=== PATIENT | male | born 1945 | race Caucasian/White ===

== ENCOUNTER 2019-03-22 08:00 | Outpatient (CLI) | payer MEDICARE, OTHER | END 2019-03-22 23:59 | disposition home or self-care (01) | LOC: LAB.R 08:00 | PROVIDERS: ATTEND Physician Assistant | DX: J02.9 Acute pharyngitis, unspecified (principal) | CPT/HCPCS: 87070 ==

== ENCOUNTER 2019-03-26 11:02 | Outpatient (CLI) | payer MEDICARE, OTHER ==
[2019-03-26 11:28] LABS: BASOPHILS % (AUTO) 0.6 %; EOSINOPHILS # (AUTO) 0.1 10^3/uL (0.0-0.7); EOSINOPHILS % (AUTO) 1.9 %; HGB - HEMOGLOBIN 14.5 g/dL (14.0-18.0); LYMPHOCYTES % (AUTO) 21.6 %; MEAN CORPUSCULAR HEMOGLOBIN 30.3 pg (27.0-31.0); MEAN CORPUSCULAR HGB CONC 33.3 g/dL (32.0-36.0); MEAN CORPUSCULAR VOLUME 90.8 fL (80.0-94.0); MEAN PLATELET VOLUME 10.9 fL (7.4-11.4); MONOCYTES # (AUTO) 0.4 10^3/uL (0.0-1.0); MONOCYTES % (AUTO) 9.1 %; NEUTROPHILS # (AUTO) 3.1 10^3/uL (1.5-6.6); NEUTROPHILS % (AUTO) 66.6 %; PLT - PLATELET COUNT 212 10^3/uL (130-450); RED BLOOD COUNT 4.79 10^6/uL (4.70-6.10); WHITE BLOOD COUNT 4.6 x10^3/uL (4.8-10.8)
[2019-03-26 12:01] LABS: ALBUMIN 4.5 g/dL (3.2-5.5); ALBUMIN/GLOBULIN RATIO 1.3 (1.0-2.2); ALKALINE PHOSPHATASE 64 IU/L (42-121); ALT ALANINE AMINOTRANSFERASE 46 IU/L (10-60); AST ASPARTATE AMINOTRANSFERASE 36 IU/L (10-42); BILIRUBIN,TOTAL 1.1 mg/dL (0.2-1.0); BUN - BLOOD UREA NITROGEN 16 mg/dL (6-20); CALCIUM 9.6 mg/dL (8.5-10.3); CARBON DIOXIDE - CO2 28 mmol/L (21-32); CHLORIDE 99 mmol/L (101-111); CHOL/HDL RATIO 3.7 (<5.0); CHOLESTEROL 140 mg/dL; CREATININE 1.4 mg/dL (0.6-1.2); GFR - MDRD 50 (>89); GLUCOSE 127 mg/dL (70-100); HDL CHOLESTEROL 38 mg/dL; LDL CHOLESTEROL,CALCULATED 71 mg/dL; LDL/HDL RATIO 1.9 (<3.6); SODIUM 139 mmol/L (135-145); VLDL CHOLESTEROL 31 mg/dL
[2019-03-26 12:07] LABS: HB2 TOTAL 15.3 g/dL; HEMOGLOBIN A1C 0.86 g/dL; HEMOGLOBIN A1C % 7.3 % (4.6-6.2)
== END 2019-03-26 11:03 | disposition home or self-care (01) ==
LOC: LAB 11:02
PROVIDERS: ATTEND Physician Assistant
DX: E78.5 Hyperlipidemia, unspecified (principal); E11.9 Type 2 diabetes mellitus without complications; I10 Essential (primary) hypertension; Z12.5 Encounter for screening for malignant neoplasm of prostate
CPT/HCPCS: 36415; 80053; 80061; 83036; 85025; G0103; 83721; 84153

== ENCOUNTER 2020-02-04 10:51 | Outpatient (CLI) | payer MEDICARE, OTHER ==
--- NOTE | 2020-02-04 17:38 | XRAY Report ---
Reason: LEFT ANKLE PAIN Procedure Date: 02/04/2020 Accession Number: [id number] / [id number] Procedure: WCP - Ankle 3 View LT CPT Code: Final Report FULL RESULT: EXAM: LEFT ANKLE RADIOGRAPHY EXAM DATE: 02/04/2020 10:51 AM. CLINICAL HISTORY: LEFT ANKLE PAIN. COMPARISON: FOOT 2 VIEW LT 02/04/2020 10:29 AM. TECHNIQUE: 3 views. FINDINGS: Bones: Normal. No fractures or bone lesions. Joints: Normal. No effusion. No subluxations. The ankle mortise is normally aligned. Soft Tissues: Normal. No soft tissue swelling. IMPRESSION: Negative ankle RADIA
--- NOTE | 2020-02-04 17:41 | XRAY Report ---
Reason: LEFT FOOT PAIN Procedure Date: 02/04/2020 Accession Number: [id number] / [id number] Procedure: WCP - Foot 2 View LT CPT Code: Final Report FULL RESULT: EXAM: LEFT FOOT RADIOGRAPHY EXAM DATE: 02/04/2020 10:51 AM. CLINICAL HISTORY: LEFT FOOT PAIN. COMPARISON: None. TECHNIQUE: 2 views. FINDINGS: Bones: There is chronic appearing spurring along the plantar surface of the distal fifth metatarsal diaphysis. Negative for fracture. There is spurring at the posterior calcaneus near the Achilles insertion. Joints: No subluxation or dislocation. Soft Tissues: Normal. No soft tissue swelling. IMPRESSION: 1. Chronic appearing spurring of the plantar aspect of the distal fifth metatarsal and of the posterior calcaneus. 2. No acute fracture or subluxation. RADIA
== END 2020-02-04 10:52 | disposition home or self-care (01) ==
LOC: DI.WCP 10:51
PROVIDERS: ATTEND Family Medicine
DX: M25.775 Osteophyte, left foot (principal); M77.32 Calcaneal spur, left foot

== ENCOUNTER 2020-07-13 07:00 | Outpatient (CLI) | payer MEDICARE, OTHER ==
--- NOTE | 2020-07-13 15:11 | XRAY Report ---
PROCEDURE: Chest 2 View X-Ray INDICATIONS: CHEST PAIN TECHNIQUE: 2 view(s) of the chest. COMPARISON: None. FINDINGS: Surgical changes and devices: None. Lungs and pleura: No pleural effusions or pneumothorax. Lungs are clear. Mediastinum: Mediastinal contours are normal. Heart size is normal. Bones and chest wall: No suspicious bony abnormalities. Soft tissues appear unremarkable. IMPRESSION: No acute cardiopulmonary pathology. Reviewed by: Mak Rubio MD on 07/13/2020 3:10 PM PDT Approved by: Mak Rubio MD on 07/13/2020 3:10 PM PDT Station ID: [id number]
== END 2020-07-13 23:59 | disposition home or self-care (01) ==
LOC: DI.WCP 07:00
PROVIDERS: ATTEND Physician Assistant
DX: R07.89 Other chest pain (principal)
CPT/HCPCS: 71046

== ENCOUNTER 2020-08-24 15:32 | Outpatient (CLI) | payer MEDICARE, OTHER ==
[2020-08-24 16:14] LABS: CALCIUM 8.7 mg/dL (8.5-10.3); CREATININE 1.5 mg/dL (0.6-1.2)
== END 2020-08-24 15:33 | disposition home or self-care (01) ==
LOC: LAB 15:32
PROVIDERS: ATTEND Physician Assistant
DX: R07.89 Other chest pain (principal)
CPT/HCPCS: 36415; 80048

== ENCOUNTER 2020-09-09 08:55 | Outpatient (CLI) | payer MEDICARE, OTHER ==
--- NOTE | 2020-09-09 12:09 | CARDIAC PROCEDURE NOTE ---
DATE OF SERVICE: 09/09/2020 Physician: Lydia Gayle MD, [facility] INDICATION: Atypical chest pain, hypertension, prior abnormal EKG with exercise. CARDIAC RISK FACTORS: Advanced age, male gender, diabetes, hypertension, elevated cholesterol, family history of heart disease. DESCRIPTION OF PROCEDURE: After signing informed consent, the patient underwent a Curt-protocol treadmill stress test with nuclear myocardial perfusion imaging. RESTING HEART RATE: 52. PEAK HEART RATE: 135 (91% predicted maximum heart rate for age). RESTING BLOOD PRESSURE: 178/84. PEAK BLOOD PRESSURE: 250/78. The patient exercised for 6 minutes and 42 seconds on a Curt-protocol treadmill stress test. He achieved a peak heart rate of 135 (91% PMHR) and 8.1 METs. The patient had mild to moderate shortness of breath, and rated his perceived exertion at 16/20 at peak on the Urban scale. Oxygen saturation was 95%-98% on room air throughout the test. He described resting chest pain at 2/10, which he felt was from his "shingles." This chest pain did not change during exertion nor with a deep breath. Blood pressure response was excessive; in the first stage his blood pressure tian to 174/107 and the second stage 210/111. Blood pressure was also very slow to recover after exercise. RESTING EKG: Sinus bradycardia, borderline first-degree block, IVCD. EKG AT PEAK: First-degree heart block develops, [address] depressions develop in leads II, III, aVF, and V2 through V6. These recovered slowly after exertion and were back to baseline at 7 minutes. SUMMARY: 1. Abnormal resting EKG. 2. Significant ST-segment changes develop suggesting ischemia, by EKG criteria. 3. Fair exercise tolerance. 4. Blood pressure is poorly controlled (despite taking all his prescribed BP medications on schedule). 5. Nuclear images were reported separately and showed an infero-lateral fixed defect that resolves with prone imaging, suggesting attenuation artifact. No areas of reversible ischemia. Normal LVEF. IMPRESSION: 1. Probably normal stress test for coronary ischemia. 2. EKG changes that developed were possibly due to hypertensive BP. RECOMMENDATIONS: 1. Better BP control. 2. Aggressive risk factor management, given the strong family CAD history. cc: Marge Marcano PA-C TD: 09/09/2020 12:01 ENOCH
--- NOTE | 2020-09-09 17:00 | Nuclear Medicine Report ---
PROCEDURE: Rest and exercise myocardial perfusion SPECT with gated imaging and ejection fraction INDICATIONS: ATYPICAL CHEST PAIN RADIOPHARMACEUTICAL: 11.26 mCi Tc-99m Myoview IV at rest and 31.46 mCi Tc-99m Myoview IV at peak exe rcise. [id number] was performed. TECHNIQUE: Radiopharmaceutical was injected at peak stress test, and also at rest. SPECT images wer e obtained. SPECT myocardial perfusion images were displayed in short axis, horizontal long axis, an d vertical long axis views. Gated images were reviewed using AutoQUANT software. COMPARISON: None available. CARDIAC STRESS: A standard Curt treadmill exercise tolerance test was performed by the patient under the supervision of an attending staff. The patient exercised for 6 minutes and 42 seconds; functional aerobic impai rment (NANDA) is -3%. Hemodynamic data: There is normal blood pressure and heart rate response to exercise stress. Patien t achieved of maximum predicted heart rate at peak exercise. Symptoms: Patient denied chest pain during exercise. EKG: No diagnostic EKG changes of ischemia; no ectopy. FINDINGS: Raw data: There is good myocardial labeling by radiotracer. No significant motion artifacts. Lung- to-heart ratio is 0.29 (normal is less than 0.38 for tetrafosmin tracer). Left ventricle function: Gated images demonstrate normal left ventricle wall thickening. No segment al wall motion abnormality. No transient ischemic dilation; TID is 0.91 (normal less than 1.3). The left ventricle resting end-diastolic volume is 83 mL. Left ventricle stress ejection fraction is 77 %; normal values are above 45%. Myocardial perfusion: There is a moderate-sized, moderately intense, fixed perfusion defect involvin g the inferolateral wall. The apparent fixed perfusion defect involving the inferolateral wall demons trates near complete normalization of prone position and likely represents soft tissue attenuation ar tifact. There is otherwise normal distribution of activity in the left and right ventricular myocardi um during both the rest and stress phases of the study. IMPRESSION: 1. Probably normal myocardial perfusion study. Apparent fixed perfusion defect involving the inferola teral wall normalizes in the prone position and likely represents soft tissue attenuation artifact. 2. Normal left ventricular function with no segmental wall motion abnormalities and normal stress LVE F of 77%. 3. Average exercise capacity with functional aerobic impairment of -3%. PQRS ATTESTATIONS: Measure 322 - Is this imaging test primarily performed on a low-risk surgery patient for preoperative evaluation within 30 days preceding their low-risk non-cardiac surgery? Low-risk surgery is defined as cardiac or myocardial infarction less than 1%, including (but not limited to) endoscopic pr ocedures, superficial procedures, cataract surgery, and excisional breast surgery: Answer: No Measure 323 - Is this imaging test performed primarily for the monitoring of an asymptomatic patient who had percutaneous coronary intervention on the visit date or within 2 years of the visit date? An swer: No Measure 324 - Is this imaging test performed primarily for the initial detection and risk assessment on an asymptomatic, low coronary heart disease patient? Low CHD risk definition = clinicians should consider the maximum number of available patient factors used to estimate risk based on [place] (A TP III criteria), typically age, gender, diabetes, smoking status, and use of blood pressure medicati on, and integrate age appropriate estimates for missing elements, such as LDL or standard blood press ure. Answer: No Reviewed by: Bouchra Carrington MD, PhD on 09/09/2020 4:59 PM PST Approved by: Bouchra Carrington MD, PhD on 09/09/2020 4:59 PM PST Station ID: [id number]
== END 2020-09-09 08:56 | disposition home or self-care (01) ==
LOC: DI 08:55
PROVIDERS: ATTEND Physician Assistant
DX: R07.89 Other chest pain (principal)
CPT/HCPCS: 78452; 93017; A9500

== ENCOUNTER 2020-09-29 10:25 | Outpatient (CLI) | payer MEDICARE, OTHER ==
--- NOTE | 2020-09-29 18:41 | XRAY Report ---
PROCEDURE: Shoulder 2 View LT INDICATIONS: LEFT SHOULDER PAIN TECHNIQUE: 2 views of the shoulder were acquired. COMPARISON: None. FINDINGS: Bones: No acute fractures or dislocations. Moderate hypertrophic osteophytic changes of the acromioc lavicular joint with undersurface spurring of the distal clavicle. No suspicious bony lesions. Visu alized ribs appear intact. Soft tissues: No suspicious soft tissue calcifications. IMPRESSION: Left shoulder without acute osseous abnormalities. Moderate hypertrophic left acromiocla vicular osteoarthrosis with undersurface spurring of the distal clavicle. Reviewed by: Antelmo Hein MD on 09/29/2020 5:39 PM [facility] Approved by: Antelmo Hein MD on 09/29/2020 5:39 PM [facility] Station ID: [id number]
--- OUTSIDE RECORDS SUMMARY | 2020-09-30 09:47 | EXTERNAL MEDICAL SUMMARY RPT | Continuity of Care Document ---
:1945 Demographics Phone Unavailable Preferred Language Georgian Marital Status Unknown Latter Day Affiliation Unknown Race Unknown Ethnic Group Unknown Author Organization [place] Address [address] [phone] Phone Care Team Providers Name Role Phone PA-C Unavailable Unavailable Holiday Unavailable Unavailable Miscellaneous Unavailable Unavailable Problems date description facility 2019-03-22 08:00 ACUTE PHARYNGITIS, UNSPECIFIED [facility] 2019-03-26 11:02 TYPE 2 DIABETES MELLITUS [facility] WITHOUT COMPLICATIONS 2019-03-26 11:02 HYPERLIPIDEMIA, UNSPECIFIED [facility] 2019-03-26 11:02 ESSENTIAL (PRIMARY) [facility] HYPERTENSION 2019-03-26 11:02 ENCOUNTER FOR SCREENING FOR [facility] MALIGNANT NEOPLASM OF PROSTATE 2020-02-04 10:51 OSTEOPHYTE, LEFT FOOT [facility] [place] 2020-02-04 10:51 CALCANEAL SPUR, LEFT FOOT [facility] 2020-04-17 07:40 TYPE 2 DIABETES MELLITUS [facility] WITHOUT COMPLICATIONS 2020-04-17 07:40 HYPERLIPIDEMIA, UNSPECIFIED [facility] 2020-04-17 07:40 PALPITATIONS [facility] [place] 2020-04-17 07:40 ENCOUNTER FOR SCREENING FOR [facility] MALIGNANT NEOPLASM OF PROSTATE 2020-07-07 00:00:00 [facility] 2020-07-07 00:00:00 Chondrocostal junction syndrome [facility] [place] [facility] 2020-07-07 00:00:00 [facility]related [facility] [place] [facility] 2020-07-07 00:00:00 Tobacco use and exposure [facility] 2020-07-07 00:00:00 [facility] 2020-07-07 00:00:00 Details of drug misuse behavior [facility] [place] [facility] 2020-07-07 00:00:00 Current some day smoker [facility] [place] [facility] 2020-07-07 00:00:00 Costal chondritis [facility] [place] [facility] 2020-07-07 00:00:00 Tobacco smoking status NHIS [facility] [place] [facility] 2020-07-10 10:43 PAIN IN LEFT SHOULDER [facility] 2020-07-10 11:00 PAIN IN LEFT SHOULDER [facility] 2020-07-13 00:00:00 CHEST 2 VIEW [facility] [place] [facility] 2020-07-13 00:00:00 ETT [facility] [place] [facility] 2020-07-13 00:00:00 Other chest pain [facility] [place] [facility] 2020-07-13 00:00:00 Atypical chest pain [facility] [place] [facility] 2020-07-13 00:00:00 Health-related behavior [facility] [place] [facility] 2020-07-13 00:00:00 [facility] [place] [facility] 2020-07-13 00:00:00 Exercise [facility] [place] [facility] 2020-07-13 00:00:00 Details of drug misuse behavior [facility] [place] [facility] 2020-07-13 00:00:00 Current some day smoker [facility] [place] [facility] 2020-07-13 00:00:00 Tobacco smoking status NHIS [facility] [place] [facility] 2020-07-13 07:00 OTHER [facility]ST PAIN [facility] 2020-07-14 10:15 PAIN IN LEFT SHOULDER [facility] 2020-07-16 10:00 PAIN IN LEFT SHOULDER [facility] 2020-07-20 09:45 PAIN IN LEFT SHOULDER [facility] 2020-07-22 09:45 PAIN IN LEFT SHOULDER [facility] 2020-07-24 15:23 Encounter for screening for [facility] other viral diseases 2020-07-27 14:44 Other chest pain [facility] 2020-07-27 15:30 Other chest pain [facility] 2020-07-29 09:30 PAIN IN LEFT SHOULDER [facility] 2020-07-31 10:15 PAIN IN LEFT SHOULDER [facility] 2020-08-03 10:45 PAIN IN LEFT SHOULDER [facility] 2020-08-05 00:00:00 MPS; EXERCISE [facility] 2020-08-05 00:00:00 [facility] 2020-08-05 00:00:00 [facility] 2020-08-05 00:00:00 [facility] 2020-08-05 00:00:00 [facility] 2020-08-05 00:00:00 Details of drug misuse behavior [facility] 2020-08-05 00:00:00 Current [facility] day [facility] 2020-08-05 00:00:00 Tobacco smoking status NHIS [facility] 2020-08-05 10:45 PAIN IN LEFT SHOULDER [facility] 2020-08-10 10:45 PAIN IN LEFT SHOULDER [facility] 2020-08-17 10:45 PAIN IN LEFT SHOULDER [facility] 2020-08-21 10:15 PAIN IN LEFT SHOULDER [facility] 2020-08-24 14:15 PAIN IN LEFT SHOULDER [facility] 2020-08-26 15:15 PAIN IN LEFT SHOULDER [facility] 2020-08-31 11:30 PAIN IN LEFT SHOULDER [facility] 2020-09-02 00:00:00 Alcohol [facility] 2020-09-02 00:00:00 Health-related behavior [facility] [place] [facility] 2020-09-02 00:00:00 Tobacco use and exposure [facility] [place] [facility] 2020-09-02 00:00:[address] 2020-09-02 00:00:00 Details of drug misuse behavior [facility] [place] [facility] 2020-09-02 00:00:00 [facility] [place] [facility] 2020-09-02 00:00:00 Tobacco smoking status AKIS [facility] [place] [facility] 2020-09-04 10:15 [facility] 2020-09-14 10:45 [facility]OULD[facility] 2020-09-16 10:45 PA[facility] IN [facility]OULD[facility] 2020-09-22 10:57 PA[facility] IN [facility]OULD[facility] 2020-09-22 11:00 [facility]OULD[facility] 2020-09-29 00:00:00 Adhesive capsulitis of shoulder [facility] [place] [facility] 2020-09-29 00:00:00 SHOULDER COMPLETE 2 V [facility] 2020-09-29 00:00:00 Adhesive capsulitis of right [facility] Primary [facility] shoulder [place] [facility] 2020-09-29 00:00:00 Health-related behavior [facility] [place] [facility] 2020-09-29 00:00:00 Tobacco use and exposure [facility] [place] [facility] 2020-09-29 00[facility]00:00 [facility] 2020-09-29 00:00:00 Details of drug misuse behavior [facility] [place] [facility] 2020-09-29 00:00:00 Current some day smoker [facility] [place] [facility] 2020-09-29 00:00:00 Tobacco smoking status AKIS [facility] Allergies date description facility NO KNOWN ENVIRONMENTAL ALLERGIES [facility] No Known Medication Allergies [facility] TETRACYCLINES [facility] LABETALOL [facility] Medications date description facility 2020-07-03 00:00:00 [facility] [place] [facility] 2020-07-03 00:00:00 null [facility] [place] [facility] 2020-07-03 00:00:00 [facility]ONE [facility] [place] [facility] 2020-07-03 00:00:00 [facility]EDNISONE [facility] [place] [facility] 2020-08-05 00:00:00 null [facility] [place] [facility] 2020-08-05 00:00:00 null [facility] [place] [facility] 2020-08-05 00:00:00 null [facility] [place] [facility] 2020-08-05 00:00:00 null [facility] [place] [facility] 2020-08-05 00:00:00 AMLODIPINE BESYLATE [facility] Vikt[facility] [place] [facility] 2020-08-05 00:00:00 AMLODIPINE BESYLATE [facility] [place] [facility] 2020-08-05 00:00:00 AMLODIPINE BESYLATE [facility] [place] [facility] 2020-08-05 00:00:00 AMLODIPINE BESYLATE [facility] [place] [facility] Procedures date description facility 2020-07-13 00:00:00 CHEST 2 [facility] [place] [facility] date description facility 2020-07-13 00:00:00 [facility] [place] [facility] date description facility 2020-07-24 00:00:00 [facility] date description facility 2020-08-05 00:00:00 MPS; EXERCISE [facility] [place] [facility] date description facility 2020-08-05 00:00:00 [facility] [place] [facility] Results Social History date description facility 2020-07-07 00:00:00 Current some day smoker [facility] [place] [facility] date description facility 2020-07-13 00:00:00 Current [facility] day smoker [facility] [place] [facility] date description facility 2020-08-05 00:00:00 Current [facility] day smoker [facility] [place] [facility] date description facility 2020-09-02 00:00:00 Current some day smoker [facility] [place] [facility] date description facility 2020-09-29 00:00:00 [facility] [place] [facility] Social History date description facility 2020-07-07 00:00:00 Current [facility] [place] [facility] date description facility 2020-07-13 00:00:00 Current [facility] day [facility] [place] [facility] date description facility 2020-08-05 00:00:00 Current [facility] [place] [facility] date description facility 2020-09-02 00:00:00 Current [facility] day [facility] [place] [facility] date description facility 2020-09-29 00:00:00 Current [facility] day [facility] [place] [facility] date description facility [id number]
== END 2020-09-29 10:26 | disposition home or self-care (01) ==
LOC: DI.WCP 10:25
PROVIDERS: ATTEND Physician Assistant
DX: M19.012 Primary osteoarthritis, left shoulder (principal)

== ENCOUNTER 2020-12-24 08:06 | Outpatient (CLI) | payer MEDICARE, OTHER ==
[2020-12-24 08:26] LABS: BILIRUBIN,URINE NEGATIVE (NEGATIVE); GLUCOSE, URINE (UA) NEGATIVE (NEGATIVE); KETONES,URINE (UA) NEGATIVE (NEGATIVE); LEUKOCYTE ESTERASE, URINE NEGATIVE (NEGATIVE); NITRITE,URINE NEGATIVE (NEGATIVE); OCCULT BLOOD,URINE NEGATIVE (NEGATIVE); PH,URINE 6.5 PH (5.0-7.5); PROTEIN,URINE NEGATIVE (NEGATIVE); UROBILINOGEN,URINE 0.2 (NORMAL) E.U./dL (NORMAL)
[2020-12-24 08:35] LABS: BASOPHILS % (AUTO) 0.5 %; EOSINOPHILS # (AUTO) 0.1 10^3/uL (0.0-0.7); EOSINOPHILS % (AUTO) 2.6 %; HCT - HEMATOCRIT 44.2 % (42.0-52.0); HGB - HEMOGLOBIN 15.1 g/dL (14.0-18.0); LYMPHOCYTES # (AUTO) 0.9 10^3/uL (1.5-3.5); LYMPHOCYTES % (AUTO) 23.7 %; MEAN CORPUSCULAR HEMOGLOBIN 31.3 pg (27.0-31.0); MEAN CORPUSCULAR HGB CONC 34.2 g/dL (32.0-36.0); MEAN CORPUSCULAR VOLUME 91.7 fL (80.0-94.0); MEAN PLATELET VOLUME 11.3 fL (7.4-11.4); MONOCYTES # (AUTO) 0.4 10^3/uL (0.0-1.0); MONOCYTES % (AUTO) 9.2 %; NEUTROPHILS # (AUTO) 2.4 10^3/uL (1.5-6.6); PLT - PLATELET COUNT 194 10^3/uL (130-450); RED BLOOD COUNT 4.82 10^6/uL (4.70-6.10); RED CELL DISTRIBUTION WIDTH 12.2 % (12.0-15.0); WHITE BLOOD COUNT 3.8 x10^3/uL (4.8-10.8)
[2020-12-24 08:35] LABS: BACTERIA,URINE None Seen /HPF (None Seen); CLARITY,URINE CLEAR (CLEAR); RBC,URINE None Seen /HPF (0-5); SQUAMOUS EPITHELIAL CELL,UR NONE SEEN (<= Few); WBC,URINE 0-3 /HPF (0-3)
[2020-12-24 08:45] LABS: ALBUMIN 4.4 g/dL (3.2-5.5); ALBUMIN/GLOBULIN RATIO 1.4 (1.0-2.2); ALKALINE PHOSPHATASE 72 IU/L (42-121); ALT ALANINE AMINOTRANSFERASE 34 IU/L (10-60); AST ASPARTATE AMINOTRANSFERASE 25 IU/L (10-42); BUN - BLOOD UREA NITROGEN 20 mg/dL (6-20); CALCIUM 9.2 mg/dL (8.5-10.3); CARBON DIOXIDE - CO2 26 mmol/L (21-32); CHLORIDE 102 mmol/L (101-111); CHOL/HDL RATIO 3.7 (<5.0); CHOLESTEROL 140 mg/dL; CREATININE 1.4 mg/dL (0.6-1.2); GFR - MDRD 50 (>89); GLUCOSE 139 mg/dL (70-100); HDL CHOLESTEROL 38 mg/dL; LDL CHOLESTEROL,CALCULATED 72 mg/dL; LDL/HDL RATIO 1.9 (<3.6); POTASSIUM 3.5 mmol/L (3.5-5.0); SODIUM 139 mmol/L (135-145); TOTAL PROTEIN 7.5 g/dL (6.7-8.2); TRIGLYCERIDES 151 mg/dL; VLDL CHOLESTEROL 30 mg/dL
[2020-12-24 10:22] LABS: ESTIMATED AVERAGE GLUCOSE 148 mg/dL (70-100); HEMOGLOBIN A1c% 6.8 % (4.27-6.07)
== END 2020-12-24 08:07 | disposition home or self-care (01) ==
LOC: LAB 08:06
PROVIDERS: ATTEND Family Medicine
DX: E11.9 Type 2 diabetes mellitus without complications (principal); R31.9 Hematuria, unspecified
CPT/HCPCS: 36415; 80053; 80061; 81001; 83036; 83721; 85025; 87086

== ENCOUNTER 2021-04-05 13:05 | Observation (INO) | payer MEDICARE, OTHER ==
[2021-04-05] MEDS ORDERED: ATROPINE ABBOJECT 0.5 MG/5 ML SYRINGE IVP STA (13:33)
[2021-04-05] MEDS ORDERED: GLUCAGON 5 MG in DEXTROSE 5% 45 ML IV STA (13:44)
[2021-04-05 13:49] LABS: BASOPHILS % (AUTO) 0.4 %; EOSINOPHILS # (AUTO) 0.1 10^3/uL (0.0-0.7); EOSINOPHILS % (AUTO) 1.4 %; HCT - HEMATOCRIT 37.8 % (42.0-52.0); HGB - HEMOGLOBIN 13.1 g/dL (14.0-18.0); LYMPHOCYTES # (AUTO) 0.9 10^3/uL (1.5-3.5); LYMPHOCYTES % (AUTO) 12.8 %; MEAN CORPUSCULAR HGB CONC 34.7 g/dL (32.0-36.0); MEAN CORPUSCULAR VOLUME 92.2 fL (80.0-94.0); MEAN PLATELET VOLUME 11.9 fL (7.4-11.4); MONOCYTES # (AUTO) 0.8 10^3/uL (0.0-1.0); MONOCYTES % (AUTO) 10.8 %; NEUTROPHILS # (AUTO) 5.4 10^3/uL (1.5-6.6); NEUTROPHILS % (AUTO) 74.3 %; PLT - PLATELET COUNT 179 10^3/uL (130-450); RED CELL DISTRIBUTION WIDTH 12.1 % (12.0-15.0); WHITE BLOOD COUNT 7.3 x10^3/uL (4.8-10.8)
--- NOTE | 2021-04-05 14:01 | ED Physician Documentation ---
History of Present Illness - Stated complaint Stated Complaint: DIZZINESS - Chief complaint Chief Complaint: Cardiac - History obtained from History obtained from: Patient - History of Present Illness Timing: Today Pain level max: 0 Pain level now: 0 - Additonal information Additional information: Patient is a 75-year-old male who presents to the emergency department complaining of lightheadedness and dizziness for the past 3 days since increasing his metoprolol from 25 mg p.o. daily to 50 mg p.o. daily. It is the extended release metoprolol. No chest pain. Feels short of breath and lightheaded. States he has a history of atrial fibrillation. He is on flecainide as well. Worse with walking, better with lying still. Review of Systems Ten Systems: 10 systems reviewed and negative Constitutional: denies: Fever, Chills Ears: denies: Ear pain Nose: denies: Rhinorrhea / runny nose, Congestion Throat: denies: Sore throat Cardiac: denies: Chest pain / pressure, Palpitations, Calf pain GI: denies: Vomiting, Diarrhea Skin: denies: Rash Musculoskeletal: denies: Neck pain, Back pain Neurologic: denies: Headache PD PAST MEDICAL HISTORY - Past Medical History Past Medical History: Yes Cardiovascular: Hypertension, Atrial fibrillation - Present Medications Home Medications: Ambulatory Orders Medication Instructions Recorded Confirmed Apixaban [Eliquis] 5 mg PO BID 04/05/21 04/05/21 Atorvastatin [Lipitor] 40 mg PO HS 04/05/21 04/05/21 Flecainide [Tambocar] 100 mg PO BID 04/05/21 04/05/21 Losartan [Cozaar] 50 mg PO DAILY 04/05/21 04/05/21 Metoprolol Succinate [Toprol Xl] 25 mg PO BID 04/05/21 04/05/21 Pantoprazole Sodium [Protonix] 20 mg PO DAILY 04/05/21 04/05/21 hydroCHLOROthiazide [Hydrodiuril] 25 mg PO DAILY 04/05/21 04/05/21 metFORMIN [Glucophage] 500 mg PO DAILY 04/05/21 04/05/21 - Allergies Allergies/Adverse Reactions: Allergies Allergy/AdvReac Type Severity Reaction Status Date / Time No Known Drug Allergies Allergy Verified 04/05/21 13:14 - Living Situation Living Situation: reports: With family Living Arrangement: reports: At home - Social History Does the pt have substance abuse?: No - Family History Family history: reports: Non contributory PD ED PE NORMAL - Vitals Vital signs reviewed: Yes - General General: Alert and oriented X 3, No acute distress, Well developed/nourished - HEENT HEENT: PERRL, Moist mucous membranes - Neck Neck: Supple, no meningeal sign - Cardiac Cardiac: Strong equal pulses, Other (bradycardic) - Respiratory Respiratory: No respiratory distress, Clear bilaterally - Abdomen Abdomen: Soft, Non tender, Non distended - Derm Derm: Warm and dry - Extremities Extremities: No edema - Neuro Neuro: Alert and oriented X 3 - Psych Psych: Normal mood, Normal affect Results - Vitals Vitals: Vital Signs - 24 hr 04/05/21 04/05/21 04/05/21 13:14 13:47 15:24 Temperature 36.5 C 37.1 C Heart Rate 41 L 43 L 41 L Respiratory 16 13 24 Rate Blood Pressure 145/86 H 135/100 H 120/86 H O2 Saturation 100 100 99 Oxygen O2 Source Room air - EKG (time done) 1320 Rate: Rate (enter#) (37) Rhythm: Sinus bradycardia [place]: Normal Intervals: Wide QRS Ischemia: Normal ST segments - Labs Labs: Laboratory Tests 04/05/21 04/05/21 04/05/21 13:39 13:45 13:45 WBC 7.3 RBC 4.10 L Hgb 13.1 L Hct 37.8 L MCV 92.2 MCH 32.0 H MCHC 34.7 RDW 12.1 Plt Count 179 MPV 11.9 H Neut # (Auto) 5.4 Lymph # (Auto) 0.9 L [place] # (Auto) 0.8 Eos # (Auto) 0.1 Baso # (Auto) 0.0 Absolute Nucleated RBC 0.00 Nucleated RBC % 0.0 Sodium 139 Potassium 3.3 L Chloride 96 L Carbon Dioxide 29 Anion Gap 14.0 H BUN 22 H Creatinine 1.6 H Estimated GFR (MDRD) 43 L Glucose 118 H Calcium 9.0 Phosphorus Magnesium Total Bilirubin 1.5 H AST 18 ALT 25 Alkaline Phosphatase 80 Troponin I High Sens 14.1 Total Protein 7.7 Albumin 4.0 Globulin 3.7 Albumin/Globulin Ratio 1.1 Lipase 28 Nasal Adenovirus (PCR) Nasal B. parapertussis DNA (PCR) Nasal Coronavir 229E PCR Nasal Coronavir HKU1 PCR Nasal Coronavir NL63 PCR Nasal Coronavir OC43 PCR Nasal Enterovir/Rhinovir PCR Nasal Influenza B PCR Nasal Influenza A PCR Nasal Parainfluen 1 PCR Nasal Parainfluen 2 PCR Nasal Parainfluen 3 PCR Nasal Parainfluen 4 PCR Nasal RSV (PCR) Nasal B.pertussis DNA PCR Nasal C.pneumoniae (PCR) Ruperto Human Metapneumo PCR Nasal M.pneumoniae (PCR) Nasal SARS-CoV-2 (PCR) 04/05/21 04/05/21 13:45 14:59 WBC RBC Hgb Hct MCV MCH MCHC RDW Plt Count MPV Neut # (Auto) Lymph # (Auto) [place] # (Auto) Eos # (Auto) Baso # (Auto) Absolute Nucleated RBC Nucleated RBC % Sodium Potassium Chloride Carbon Dioxide Anion Gap BUN Creatinine Estimated GFR (MDRD) Glucose Calcium Phosphorus 3.9 Magnesium 2.1 Total Bilirubin AST ALT Alkaline Phosphatase Troponin I High Sens Total Protein Albumin Globulin Albumin/Globulin Ratio Lipase Nasal Adenovirus (PCR) NOT DETECTED Nasal B. parapertussis DNA (PCR) NOT DETECTED Nasal Coronavir 229E PCR NOT DETECTED Nasal Coronavir HKU1 PCR NOT DETECTED Nasal Coronavir NL63 PCR NOT DETECTED Nasal Coronavir OC43 PCR NOT DETECTED Nasal Enterovir/Rhinovir PCR NOT DETECTED Nasal Influenza B PCR NOT DETECTED Nasal Influenza A PCR NOT DETECTED Nasal Parainfluen 1 PCR NOT DETECTED Nasal Parainfluen 2 PCR NOT DETECTED Nasal Parainfluen 3 PCR NOT DETECTED Nasal Parainfluen 4 PCR NOT DETECTED Nasal RSV (PCR) NOT DETECTED Nasal B.pertussis DNA PCR NOT DETECTED Nasal C.pneumoniae (PCR) NOT DETECTED Ruperto Human Metapneumo PCR NOT DETECTED Nasal M.pneumoniae (PCR) NOT DETECTED Nasal SARS-CoV-2 (PCR) NOT DETECTED - Rads (name of study) cxr Radiology: Prelim report reviewed, EMP read contemporaneously, See rad report (no acute disease) PD MEDICAL DECISION MAKING - ED course Complexity details: reviewed results, re-evaluated patient, considered differential, d/w patient, d/w family ED course: 75-year-old male with symptomatic bradycardia. Likely secondary to increasing his flecainide and metoprolol. Metoprolol was increased to 50 mg p.o. daily of extended release metoprolol. Flecainide was at 100 mg twice a day. Given atropine and glucagon. Discussed the case with [facility], they recommend decrease flecainide to 50 mg twice a day and hold his metoprolol. We will place him in the hospital for observation to ensure heart rate increases as the flecainide and metoprolol washout. Discussed the case with Dr. Gayle, hospitalist who accepts This document was made in part using voice recognition software. While efforts are made to proofread this document, sound alike and grammatical errors may occur. Departure - Departure Disposition: ED Place in Observation Clinical Impression: Symptomatic bradycardia Condition: Stable
--- NOTE | 2021-04-05 14:01 | XRAY Report ---
PROCEDURE: Chest 1 View X-Ray INDICATIONS: Chest pain TECHNIQUE: One view of the chest was acquired. COMPARISON: 07/13/2020 FINDINGS: Surgical changes and devices: None. Lungs and pleura: No pleural effusions or pneumothorax. Lungs are clear. Mediastinum: Mediastinal contours appear normal. Heart size is normal. Bones and chest wall: No suspicious bony lesions. Overlying soft tissues appear unremarkable. IMPRESSION: No acute cardiopulmonary disease process. Reviewed by: Bouchra Carrington MD, PhD on 04/05/2021 2:00 PM PDT Approved by: Bouchra Carrington MD, PhD on 04/05/2021 2:00 PM PDT Station ID: [id number]
[2021-04-05 14:06] LABS: ALBUMIN/GLOBULIN RATIO 1.1 (1.0-2.2); BILIRUBIN,TOTAL 1.5 mg/dL (0.2-1.0); CREATININE 1.6 mg/dL (0.6-1.2); POTASSIUM 3.3 mmol/L (3.5-5.0); TOTAL PROTEIN 7.7 g/dL (6.7-8.2)
[2021-04-05] MEDS ORDERED: PROMETHAZINE INJ 25 MG in SODIUM CHLORIDE 0.9% 50 ML IV STA (14:33)
[2021-04-05 15:22] LABS: MAGNESIUM 2.1 mg/dL (1.7-2.8); PHOSPHORUS 3.9 mg/dL (2.5-4.6)
[2021-04-05 16:05] LABS: B. PARAPERTUSSIS- RESP PCR PAN NOT DETECTED; B. PERTUSSIS- RESP PCR PANEL NOT DETECTED; CORONAVIRUS 229E-RESP PCR NOT DETECTED; CORONAVIRUS HKU1-RESP PCR NOT DETECTED; CORONAVIRUS NL63-RESP PCR NOT DETECTED; CORONAVIRUS OC43-RESP PCR NOT DETECTED; HUMAN METAPNEUMOVIRUS NOT DETECTED; INFLUENZA A- RESP PCR PANEL NOT DETECTED; INFLUENZA B - RESP PCR PANEL NOT DETECTED; PARAINFLUENZA VIRUS 1 NOT DETECTED; PARAINFLUENZA VIRUS 2 NOT DETECTED; PARAINFLUENZA VIRUS 3 NOT DETECTED; PARAINFLUENZA VIRUS 4 NOT DETECTED; RHINOVIRUS/ENTEROVIRUS NOT DETECTED; RSV- RESP PCR PANEL NOT DETECTED; SARS-CoV-2 -RESP PCR PANEL NOT DETECTED
[2021-04-05 16:06] LABS: C. PNEUMONIAE- RESP PCR PANEL NOT DETECTED; M. PNEUMONIAE- RESP PCR PANEL NOT DETECTED
[2021-04-05] MEDS ORDERED: SODIUM CHLORIDE FLUSH 0.9% 10 ML SYRINGE IVP PRN (16:37)
--- NOTE | 2021-04-05 17:09 | PHARMACY PROGRESS NOTE ---
- Best Possible Medication History Admit Date and Time: 04/05/21 1650 Processed by: Pharmacy Medication History completed: Yes Patient Interview: Pt unable to participate Secondary Source(s): Physician records, Pharmacy records, Insurance records As the person ultimately responsible for medication therapy, providers are able to order a medication from an existing home medication list in [facility] via the "Reconcile Routine" prior to Confirmation of that medication by application support lead. Such practice is discouraged except when the physician, in their clinical judgment, deems that a medical need exists for a medication without regard to previous use.
[2021-04-05] MEDS: APIXABAN 5 MG TABLET PO SCH (20:49)
[2021-04-05] MEDS ORDERED: HEPARIN 5,000 UNIT/ML VIAL SUBQ SCH (21:00)
--- NOTE | 2021-04-05 23:05 | HISTORY & PHYSICAL EXAMINATION ---
Chief Complaint - Chief Complaint Chief Complaint: "Feels like my heart is sick" History of Present Illness - Admitted From Admitted From:: ED - History Obtained From Records Reviewed: ED History obtained from: Patient Exam Limitations: None - History of Present Illness HPI Comment/Other: [place] is a 75-year-old male with a past medical history of atrial fibrillation, Anticoagulated on apixaban, history of type 2 diabetes mellitus on Metformin, history of GERD, hyperlipidemia, hypertension, who presents to the emergency department today with a 4-day history of progressive lightheadedness and difficulty ambulating with near syncopal symptoms. He was seen in emergency department at the discretion of his PCP who recommended he come in for EKG. He has a exceptional children teacher that follows him at [facility] and there are plans for cardioversion outpatient in 2 days. Prior to this, he was recently started on flecainide, and his metoprolol was increased from 25 mg p.o. daily to 50 mg p.o. daily. He was started on metoprolol 2 weeks prior to all of this. In the ED, he was found to have bradycardia with heart rates dropping down into the 30s. His exceptional children teacher was contacted who stated he should probably have a washout of the beta-blockers and observed overnightUnlikely can be discharged home tomorrow with reduction of his medications based on heart rate and symptoms. Patient denied chest pain, shortness of breath, nausea, vomiting, headache, bleeding, change in stool color or other symptoms. History - Past Medical History Cardiovascular: reports: Hypertension, Atrial fibrillation Endocrine/Autoimmune: reports: Type 2 diabetes GI: reports: GERD MRSA Hx?: No - Family & Social History Family History: Mother: Diabetes, Type 1 Living arrangement: At home Living Situation: With family - Substance History Use: Uses substance without health or social issues: NONE Meds/Allgy - Home Medications Home Medications: Ambulatory Orders Medication Instructions Recorded Confirmed Apixaban [Eliquis] 5 mg PO BID 04/05/21 04/05/21 Atorvastatin [Lipitor] 40 mg PO HS 04/05/21 04/05/21 Flecainide [Tambocar] 100 mg PO BID 04/05/21 04/05/21 Losartan [Cozaar] 50 mg PO DAILY 04/05/21 04/05/21 Metoprolol Succinate [Toprol Xl] 25 mg PO BID 04/05/21 04/05/21 Pantoprazole Sodium [Protonix] 20 mg PO DAILY 04/05/21 04/05/21 hydroCHLOROthiazide [Hydrodiuril] 25 mg PO DAILY 04/05/21 04/05/21 metFORMIN [Glucophage] 500 mg PO DAILY 04/05/21 04/05/21 - Allergies Allergies/Adverse Reactions: Allergies Allergy/AdvReac Type Severity Reaction Status Date / Time No Known Drug Allergies Allergy Verified 04/05/21 13:14 Review of Systems - Constitutional Constitutional: denies: Fever, Malaise - Eyes Eyes: denies: Pain - Cardiovascular Cariovascular: reports: Irregular heart rate, Lightheadedness. denies: Palpitations, Chest pain, Syncope, Exertional dyspnea, Decr. exercise tolerance - Respiratory Respiratory: denies: Cough, Wheezing, SOB at rest - Gastrointestinal Gastrointestinal: denies: Change in bowel habits - Neurological Neurological: reports: General weakness, Dizziness. denies: Focal weakness, Headache, Numbness Prior Level of Functionality: Fully Independent Exam - Vital Signs Reviewed Vital Signs: Yes Vital Signs: Vital Signs x48h Temp Pulse Pulse Resp BP BP Pulse Ox 04/05/21 21:38 36.9 C 42 L 18 111/53 L 97 04/05/21 18:03 47 L 04/05/21 17:35 36.5 C 18 104/69 04/05/21 17:00 47 L 17 104/54 L 98 04/05/21 15:24 41 L 24 120/86 H 99 - Physical Exam General Appearance: positive: No acute distress Eyes Bilateral: positive: Normal inspection ENT: positive: ENT inspection nml Neck: positive: Nml inspection Respiratory: positive: Chest non-tender, No respiratory distress Cardiovascular: positive: No murmur, No gallop, Bradycardia, Decreased pulse(s). negative: Irregularly irregular, Extrasystoles, Tachycardia, Systolic murmur, Diastolic murmur Peripheral Pulses: positive: 2+ Abdomen: positive: Non-tender, No organomegaly, Nml bowel sounds Skin: positive: Color nml, No rash, Warm Extremities: negative: Pedal edema Neurologic/Psychiatric: positive: Oriented x3, CN's nml (2-12), Motor nml, Sensation nml, Mood/affect nml Conclusion/Plan - Problem List (1) Symptomatic bradycardia Conclusion/Plan: Patient likely experiencing near syncopal event secondary to beta-blockade and will benefit from washout. Given lack of other symptoms, current management strategy is limited to observation, telemetry monitoring, and medication adjustments. Will resume flecainide. I did discuss with patient echocardiogram and he does not recall having had one however he does have a appointment in 2 days with his exceptional children teacher for possible cardioversion. I think for now we can defer on inpatient echocardiogram unless his exceptional children teacher would like us to obtain 1 prior to discharge. (2) Type 2 diabetes mellitus Conclusion/Plan: Hold off on Metformin, cover with insulin sliding scale Qualifiers: Diabetes mellitus [employer] insulin use: without snf use (3) HTN (hypertension) Conclusion/Plan: Blood pressure normal to soft. Hold metoprolol. Resume other medications including losartan and hydrochlorothiazide. (4) HLD (hyperlipidemia) Conclusion/Plan: Resume home statin (5) Atrial fibrillation Conclusion/Plan: The bradycardic. See plan for above. Plan for outpatient cardioversion per exceptional children teacher in 2 days. Resume home anticoagulation (6) GERD (gastroesophageal reflux disease) Conclusion/Plan: Resume home PPI - Lab Results Lab results reviewed: Yes Fish Bones: 04/05/21 13:45 04/05/21 13:39 - Diagnostic Imaging Results Diagnostic Imaging Results: positive: Prelim report reviewed - EKG Results EKG Interpreted Independently: Yes Core Measures - Anticipated LOS I expect patient to be DC'd or transferred within 96 hours.: Yes - DVT/VTE - Prophylaxis VTE/DVT Device ordered at admit?: Yes
[2021-04-06] MEDS: SODIUM CHLORIDE FLUSH 0.9% 10 ML SYRINGE IVP SCH ×2 (00:22→09:19)
[2021-04-06 07:48] LABS: HCT - HEMATOCRIT 35.7 % (42.0-52.0); HGB - HEMOGLOBIN 12.1 g/dL (14.0-18.0); MEAN CORPUSCULAR HEMOGLOBIN 31.4 pg (27.0-31.0); MEAN CORPUSCULAR HGB CONC 33.9 g/dL (32.0-36.0); MEAN CORPUSCULAR VOLUME 92.7 fL (80.0-94.0); RED BLOOD COUNT 3.85 10^6/uL (4.70-6.10); RED CELL DISTRIBUTION WIDTH 12.1 % (12.0-15.0); WHITE BLOOD COUNT 5.5 x10^3/uL (4.8-10.8)
[2021-04-06 07:55] LABS: CALCIUM 8.6 mg/dL (8.5-10.3); CREATININE 1.4 mg/dL (0.6-1.2)
[2021-04-06] MEDS ORDERED: LOSARTAN 50 MG TABLET PO SCH (09:00)
[2021-04-06] MEDS ORDERED: APIXABAN 5 MG TABLET PO SCH (09:00)
[2021-04-06] MEDS ORDERED: PANTOPRAZOLE 40 MG TABLET PO SCH (09:00)
[2021-04-06] MEDS ORDERED: hydroCHLOROthiazide 25 MG TABLET PO SCH (09:00)
[2021-04-06] MEDS ORDERED: PANTOPRAZOLE SODIUM 20 MG PO SCH (09:00)
[2021-04-06] MEDS ORDERED: FLECAINIDE 50 MG TABLET PO SCH (09:00)
[2021-04-06] MEDS: APIXABAN 5 MG TABLET PO SCH (09:09)
--- NOTE | 2021-04-06 11:08 | Discharge Plan ---
Discharge Plan Problem Reviewed?: Yes Disposition: Home, Self Care Condition: Stable Prescriptions: Flecainide [Tambocar] 50 mg PO Q12H #60 tablet Metoprolol Succinate [Toprol Xl] 12.5 mg PO DAILY #15 tablet Diet: Diabetic Activity Restrictions: Activity as Tolerated Shower Restrictions: No Driving Restrictions: Yes (no driving until heart rate consistently above 55) Health Concerns: You have a known cardiac issue with an arrhythmia called atrial fibrillation. Your stockroom coordinator, Dr. Espinosa and physician melter assistant Musa, had you on long- acting metoprolol and recently increased your flecainide to control your heart rate and to convert you into a regular rhythm. Unfortunately this resulted in a very low heart rate. This is superimposed on a chronic condition that you already have where your heart rate tends to slow down and cause you to be dizzy and nauseated (called vasovagal fainting). You had a terrible episode of it a few days ago. We have placed you in observation and taking away your medications and your heart rate has gradually increased to an acceptable level. . Plan of Treatment: Dr. Espinosa would like you to be on long-acting metoprolol 12.5 mg a day. He would also like you to be on flecainide 50 mg twice a day. Continue your Eliquis without any change Care Goals: To remain in sinus rhythm. To control your arrhythmia so that you do not have to go on to need a pacemaker. Assessment: Patient understands care goals, has already discussed them with [facility], and will follow through with them. No Smoking: If you smoke, Please STOP! Call for help. Follow-up with: Vazquez Solorio DO [Primary Care Provider] -
[2021-04-06] MEDS ORDERED: POTASSIUM CHLORIDE 20 MEQ TABLET PO ONE (11:21)
[2021-04-06 11:57] VITALS: BP 101/54
--- NOTE | 2021-04-06 16:11 | DISCHARGE SUMMARY ---
"Discharge Summary Admit Date: 04/05/21 Discharge Date: 04/06/21 Discharging Provider: Nicole Soliman MD Primary Care Provider: Vazquez Solorio MD Code Status: Attempt Resuscitation Condition at Discharge: Stable Discharge Disposition: 01 Home, Self Care - DIAGNOSES Discharge Diagnoses with Status of Each Condition: 1. Sinus bradycardia 2. History of atrial fibrillation, recently converted to sinus 3. Type 2 diabetes mellitus, without complications, not on long-term insulin 3. Hypertension 4. Hyperlipidemia 5. Reflux disease without esophagitis 6. Hypokalemia 7. History of vasovagal syncope - CONSULTS | PROCEDURES Procedures: 1. Chest x-ray without acute cardiopulmonary disease process. 2. Telemetry with sinus bradycardia - HOSPITAL COURSE Hospital Course: Was placed on telemetry, and initially only metoprolol was withheld. He continued to have sinus bradycardia and as such flecainide was held. Over the course of his stay he remained soundly in the 40s. On the day of discharge he was able to go up into the 50s. 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 Putting together his history, I think this patient has a baseline sinus bradyc ardia of 60 or less. He was then started on metoprolol and flecainide by his vinyl dipper for his new onset atrial fibrillation. And he has a history of vasovagal syncope. He then suffered the side effects of having severe bradycardia, superimposed on anxiety and vasovagal syncope. And had a terrible episode in the few days prior to admission. The physician delivery assistant who works with his vinyl dipper called on the day of discharge. They instructed the patient to be resumed on metoprolol long-acting 12.5 mg a day. And to stay on flecainide 50 mg twice a day. No change in Eliquis. The patient had potassium supplemented. I explained to him that I want him take another dose tonight, and 2 more doses tomorrow. After that have his primary care provider or vinyl dipper check a BMP to see if he continues to need potassium. As I was leaving the room, at discharge, his vinyl dipper was calling the patient to speak to him and reiterate those instructions. Exam at discharge was a blood pressure of 118/59 supine. 132/59 sitting. 130/56 standing. Heart rate was 40-42 with all of these changes. He was very alarmed that he was good to be resumed on both of these medications. But I explained that his vinyl dipper knew about this and still wanted him to be on these medications to control the atrial fibrillation and to keep him in sinus. Greater then 20 minutes was spent discussing the anatomy of the electrical conducting system of his heart. How atrial fibrillation changed normal conduction. And how his 2 medications were controlling it. is at the bedside. - ALLERGIES Allergies/Adverse Reactions: Allergies Allergy/AdvReac Type Severity Reaction Status Date / Time No Known Drug Allergies Allergy Verified 04/05/21 13:14 - MEDICATIONS Home Medications: Ambulatory Orders Medication Instructions Recorded Confirmed Apixaban [Eliquis] 5 mg PO BID 04/05/21 04/05/21 Atorvastatin [Lipitor] 40 mg PO HS 04/05/21 04/05/21 Losartan [Cozaar] 50 mg PO DAILY 04/05/21 04/05/21 Pantoprazole Sodium [Protonix] 20 mg PO DAILY 04/05/21 04/05/21 hydroCHLOROthiazide [Hydrodiuril] 25 mg PO DAILY 04/05/21 04/05/21 metFORMIN [Glucophage] 500 mg PO DAILY 04/05/21 04/05/21 Flecainide [Tambocar] 50 mg PO Q12H #60 tablet 04/06/21 Metoprolol Succinate [Toprol Xl] 12.5 mg PO DAILY #15 tablet 04/06/21 Potassium Chloride 20 meq PO BID #30 tab 04/06/21 - LABS Result Diagrams: 04/06/21 07:26 04/06/21 07:26"
[2021-04-06] MEDS ORDERED: ATORVASTATIN 40 MG TABLET PO SCH (21:00)
== END 2021-04-06 13:26 | disposition home or self-care (01) ==
LOC: ED 13:05 → MS2 16:59
PROVIDERS: ADMIT Family Medicine Sports Medicine; ATTEND Specialist
DX: R00.1 Bradycardia, unspecified (principal); I48.91 Unspecified atrial fibrillation; E11.9 Type 2 diabetes mellitus without complications; I10 Essential (primary) hypertension; E78.5 Hyperlipidemia, unspecified; K21.9 Gastro-esophageal reflux disease without esophagitis; E87.6 Hypokalemia; Z79.01 Long term (current) use of anticoagulants; Z79.84 Long term (current) use of oral hypoglycemic drugs; Z20.822 Contact with and (suspected) exposure to COVID-19; Z01.812 Encounter for preprocedural laboratory examination
CPT/HCPCS: 36415; 71045; 80048; 80053; 83690; 83735; 84100; 84484; 85025; 85027; 87631; 93005; 96365; 96368; 96375; 99284; 99285; A9270; G0378; J7040; U0004; 0202U

== ENCOUNTER 2021-04-05 17:18 | Outpatient (CLI) | payer MEDICARE, OTHER | END 2021-04-05 17:19 | disposition home or self-care (01) | LOC: COV 17:18 | PROVIDERS: ATTEND Physician Assistant Medical | DX: Z01.812 Encounter for preprocedural laboratory examination (principal); I48.0 Paroxysmal atrial fibrillation; Z20.822 Contact with and (suspected) exposure to COVID-19 ==

== ENCOUNTER 2021-04-09 07:08 | Outpatient (CLI) | payer MEDICARE, OTHER ==
[2021-04-09 07:46] LABS: ALBUMIN 3.7 g/dL (3.2-5.5); ALBUMIN/GLOBULIN RATIO 1.2 (1.0-2.2); CREATININE 1.5 mg/dL (0.6-1.2); POTASSIUM 3.9 mmol/L (3.5-5.0); TOTAL PROTEIN 6.8 g/dL (6.7-8.2)
== END 2021-04-09 07:09 | disposition home or self-care (01) ==
LOC: LAB 07:08
PROVIDERS: ATTEND Family Medicine
DX: E11.9 Type 2 diabetes mellitus without complications (principal)
CPT/HCPCS: 36415; 80053

== ENCOUNTER 2021-04-28 07:00 | Outpatient (CLI) | payer MEDICARE, OTHER ==
[2021-04-28 07:58] LABS: CREATININE 1.4 mg/dL (0.6-1.2); POTASSIUM 3.5 mmol/L (3.5-5.0)
== END 2021-04-28 23:59 | disposition home or self-care (01) ==
LOC: LAB.R 07:00
PROVIDERS: ATTEND Family Medicine
DX: I48.0 Paroxysmal atrial fibrillation (principal)
CPT/HCPCS: 80048

== ENCOUNTER 2021-10-11 07:44 | Outpatient (CLI) | payer MEDICARE, OTHER ==
[2021-10-11 08:19] LABS: BASOPHILS % (AUTO) 0.5 %; EOSINOPHILS # (AUTO) 0.1 10^3/uL (0.0-0.7); EOSINOPHILS % (AUTO) 2.5 %; HCT - HEMATOCRIT 42.1 % (42.0-52.0); HGB - HEMOGLOBIN 14.5 g/dL (14.0-18.0); LYMPHOCYTES # (AUTO) 0.9 10^3/uL (1.5-3.5); LYMPHOCYTES % (AUTO) 20.5 %; MEAN CORPUSCULAR HEMOGLOBIN 31.5 pg (27.0-31.0); MEAN CORPUSCULAR HGB CONC 34.4 g/dL (32.0-36.0); MEAN CORPUSCULAR VOLUME 91.5 fL (80.0-94.0); MEAN PLATELET VOLUME 11.5 fL (7.4-11.4); MONOCYTES # (AUTO) 0.5 10^3/uL (0.0-1.0); MONOCYTES % (AUTO) 10.5 %; NEUTROPHILS # (AUTO) 2.9 10^3/uL (1.5-6.6); NEUTROPHILS % (AUTO) 65.5 %; PLT - PLATELET COUNT 177 10^3/uL (130-450); RED CELL DISTRIBUTION WIDTH 11.9 % (12.0-15.0); WHITE BLOOD COUNT 4.4 x10^3/uL (4.8-10.8)
[2021-10-11 08:32] LABS: CHOL/HDL RATIO 3.4 (<5.0); CHOLESTEROL 111 mg/dL; HDL CHOLESTEROL 33 mg/dL; LDL CHOLESTEROL,CALCULATED 53 mg/dL; LDL/HDL RATIO 1.6 (<3.6); TRIGLYCERIDES 124 mg/dL; VLDL CHOLESTEROL 25 mg/dL
[2021-10-11 13:32] LABS: ESTIMATED AVERAGE GLUCOSE 148 mg/dL (70-100); HEMOGLOBIN A1c% 6.8 % (4.27-6.07)
== END 2021-10-11 07:45 | disposition home or self-care (01) ==
LOC: LAB 07:44
PROVIDERS: ATTEND Family Medicine
DX: E11.9 Type 2 diabetes mellitus without complications (principal); Z12.5 Encounter for screening for malignant neoplasm of prostate
CPT/HCPCS: 36415; 80061; 83036; 85025; G0103; 83721; 84153

== ENCOUNTER 2022-06-02 08:19 | Outpatient (CLI) | payer MEDICARE, OTHER ==
[2022-06-02 08:45] LABS: BASOPHILS % (AUTO) 0.5 %; EOSINOPHILS # (AUTO) 0.1 10^3/uL (0.0-0.7); EOSINOPHILS % (AUTO) 3.2 %; HCT - HEMATOCRIT 41.8 % (42.0-52.0); HGB - HEMOGLOBIN 14.1 g/dL (14.0-18.0); LYMPHOCYTES # (AUTO) 0.9 10^3/uL (1.5-3.5); LYMPHOCYTES % (AUTO) 22.5 %; MEAN CORPUSCULAR HEMOGLOBIN 30.3 pg (27.0-31.0); MEAN CORPUSCULAR HGB CONC 33.7 g/dL (32.0-36.0); MEAN CORPUSCULAR VOLUME 89.9 fL (80.0-94.0); MEAN PLATELET VOLUME 11.1 fL (7.4-11.4); MONOCYTES # (AUTO) 0.5 10^3/uL (0.0-1.0); MONOCYTES % (AUTO) 11.4 %; NEUTROPHILS # (AUTO) 2.5 10^3/uL (1.5-6.6); NEUTROPHILS % (AUTO) 62.2 %; PLT - PLATELET COUNT 191 10^3/uL (130-450); RED BLOOD COUNT 4.65 10^6/uL (4.70-6.10); RED CELL DISTRIBUTION WIDTH 12.2 % (12.0-15.0)
[2022-06-02 09:14] LABS: ALBUMIN/GLOBULIN RATIO 1.3 (1.0-2.2); ALKALINE PHOSPHATASE 76 IU/L (42-121); ALT ALANINE AMINOTRANSFERASE 38 IU/L (10-60); AST ASPARTATE AMINOTRANSFERASE 28 IU/L (10-42); BILIRUBIN,TOTAL 0.9 mg/dL (0.2-1.0); BUN - BLOOD UREA NITROGEN 19 mg/dL (6-20); CALCIUM 9.3 mg/dL (8.5-10.3); CARBON DIOXIDE - CO2 35 mmol/L (21-32); CHLORIDE 102 mmol/L (101-111); CHOL/HDL RATIO 3.3 (<5.0); CHOLESTEROL 117 mg/dL; CREATININE 1.4 mg/dL (0.6-1.2); GFR - MDRD 50 (>89); GLUCOSE 145 mg/dL (70-100); HDL CHOLESTEROL 35 mg/dL; LDL CHOLESTEROL,CALCULATED 59 mg/dL; LDL/HDL RATIO 1.7 (<3.6); POTASSIUM 4.1 mmol/L (3.5-5.0); SODIUM 144 mmol/L (135-145); TOTAL PROTEIN 7.1 g/dL (6.7-8.2); TRIGLYCERIDES 117 mg/dL; VLDL CHOLESTEROL 23 mg/dL
[2022-06-02 09:18] LABS: BILIRUBIN,URINE NEGATIVE (NEGATIVE); GLUCOSE, URINE (UA) NEGATIVE (NEGATIVE); KETONES,URINE (UA) NEGATIVE (NEGATIVE); LEUKOCYTE ESTERASE, URINE NEGATIVE (NEGATIVE); NITRITE,URINE NEGATIVE (NEGATIVE); OCCULT BLOOD,URINE NEGATIVE (NEGATIVE); PROTEIN,URINE NEGATIVE (NEGATIVE); UROBILINOGEN,URINE 0.2 (NORMAL) E.U./dL (NORMAL)
[2022-06-02 09:21] LABS: CLARITY,URINE CLEAR (CLEAR)
[2022-06-02 09:31] LABS: BACTERIA,URINE Rare /HPF (None Seen); RBC,URINE 0-5 /HPF (0-5); SQUAMOUS EPITHELIAL CELL,UR FEW Squamous (<= Few); WBC,URINE 0-3 /HPF (0-3)
[2022-06-02 09:56] LABS: PSA FREE 0.68 ng/mL (0.16-2.81)
[2022-06-02 09:57] LABS: PSA TOTAL 2.01 ng/mL (0.000-2.000)
[2022-06-02 16:27] LABS: ESTIMATED AVERAGE GLUCOSE 157 mg/dL (70-100); HEMOGLOBIN A1c% 7.1 % (4.27-6.07)
== END 2022-06-02 08:20 | disposition home or self-care (01) ==
LOC: LAB 08:19
PROVIDERS: ATTEND Physician Assistant
DX: R36.1 Hematospermia (principal); R35.0 Frequency of micturition; E11.9 Type 2 diabetes mellitus without complications; E78.5 Hyperlipidemia, unspecified
CPT/HCPCS: 36415; 80053; 80061; 81001; 83036; 83721; 84153; 84154; 85025; 87086

== ENCOUNTER 2022-08-22 07:31 | Outpatient (CLI) | payer MEDICARE, OTHER ==
[2022-08-22 08:24] LABS: CALCIUM 9.3 mg/dL (8.5-10.3); CREATININE 1.4 mg/dL (0.6-1.2); POTASSIUM 3.8 mmol/L (3.5-5.0)
== END 2022-08-22 07:32 | disposition home or self-care (01) ==
LOC: LAB 07:31
PROVIDERS: ATTEND Physician Assistant Medical
DX: I48.0 Paroxysmal atrial fibrillation (principal)
CPT/HCPCS: 36415; 80048

== ENCOUNTER 2022-12-13 13:41 | Outpatient (CLI) | payer MEDICARE, OTHER ==
[2022-12-15 10:42] LABS: FREE T3 2.58 pg/mL (2.5-3.9); FREE T4 (FREE THYROXINE) 1.28 ng/dL (0.58-1.64); THYROID STIMULATING HORMONE 0.15 uIU/mL (0.34-5.60)
== END 2022-12-13 13:42 | disposition home or self-care (01) ==
LOC: LAB 13:41
PROVIDERS: ATTEND Internal Medicine Cardiovascular Disease
DX: E04.9 Nontoxic goiter, unspecified (principal); E04.1 Nontoxic single thyroid nodule; R49.0 Dysphonia
CPT/HCPCS: 36415; 84439; 84443; 84481

== ENCOUNTER 2022-12-13 13:43 | Outpatient (CLI) | payer MEDICARE, OTHER ==
[2022-12-13 13:55] LABS: BASOPHILS % (AUTO) 0.6 %; EOSINOPHILS # (AUTO) 0.1 10^3/uL (0.0-0.7); EOSINOPHILS % (AUTO) 2.2 %; HGB - HEMOGLOBIN 12.9 g/dL (14.0-18.0); LYMPHOCYTES % (AUTO) 20.2 %; MEAN CORPUSCULAR HEMOGLOBIN 29.6 pg (27.0-31.0); MEAN CORPUSCULAR HGB CONC 32.3 g/dL (32.0-36.0); MEAN CORPUSCULAR VOLUME 91.7 fL (80.0-94.0); MEAN PLATELET VOLUME 10.5 fL (7.4-11.4); MONOCYTES # (AUTO) 0.6 10^3/uL (0.0-1.0); MONOCYTES % (AUTO) 10.9 %; NEUTROPHILS # (AUTO) 3.3 10^3/uL (1.5-6.6); NEUTROPHILS % (AUTO) 65.9 %; PLT - PLATELET COUNT 237 10^3/uL (130-450); RED BLOOD COUNT 4.36 10^6/uL (4.70-6.10); RED CELL DISTRIBUTION WIDTH 12.5 % (12.0-15.0); WHITE BLOOD COUNT 5.1 x10^3/uL (4.8-10.8)
[2022-12-13 15:28] LABS: CREATININE 1.4 mg/dL (0.6-1.2); POTASSIUM 3.7 mmol/L (3.5-5.0)
--- NOTE | 2022-12-13 17:03 | Ultrasound Report ---
PROCEDURE: Head or Neck Soft Tissue INDICATIONS: THYROID NODULE TECHNIQUE: Real-time scanning was performed of the thyroid gland, with image documentation. COMPARISON: None FINDINGS: Right: Thyroid lobe measures 5.9 x 2.9 x 3.4 cm, and is homogeneous in echotexture. Left: Thyroid lobe measures 4.9 x 2.6 x 2.2 cm, and is homogenous in echotexture. Isthmus: 0.5 mm thick. Nodule number: One Location: Right superior pole Size: 4.5 x 2.7 x 2.9 cm. Composition: Prominently solid Echogenicity: Hyperechoic Shape: wider than tall. Margins: Smooth Echogenic foci: None Total points: 3 ACR TI-RADS category: Mildly suspicious Nodule number: Two Location: Right medial pole Size: 1.5 x 1.4 x 1.3 cm. Composition: Predominately solid Echogenicity: Hyperechoic Shape: wider than tall. Margins: Smooth Echogenic foci: None Total points: 3 ACR TI-RADS category: Mildly suspicious Nodule number: Three Location: Superior pole left Size: 2.7 x 2.1 x 2.0 cm. Composition: Predominantly solid Echogenicity: Hyperechoic Shape: wider than tall. Margins: Smooth Echogenic foci: None Total points: 3 ACR TI-RADS category: Mildly suspicious Nodule number: Four Location: Medial inferior pole left side Size: 1.5 x 1.6 x 2.0 cm. Composition: Solid Echogenicity: Hyperechoic Shape: wider than tall. Margins: Smooth Echogenic foci: None Total points: 3 ACR TI-RADS category: Mildly suspicious IMPRESSION: Mildly suspicious nodule, as above. Nodule #1 and 3 meet size criteria for biopsy. ACR TI-RADS definitions and recommendations: TI-RADS 1 (benign): 0 points. FNA not needed. TI-RADS 2 (not suspicious): 2 points. FNA not needed. TI-RADS 3 (mildly suspicious): 3 points. "FNA if 2.5 cm or larger, follow up if 1.5 cm or larger (at 1, 3, and 5 years). TI-RADS 4 (moderately suspicious): 4-6 points. "FNA if 1.5 cm or larger, follow up if 1 cm or larger (at 1, 2, 3, and 5 years). TI-RADS 5 (highly suspicious): 7 points or more. "FNA if 1 cm or larger, follow up if 0.5 cm or larger (every year for 5 years). Reviewed by: Brian Garnica on 12/13/2022 5:02 PM PDT Approved by: Brian aGrnica on 12/13/2022 5:02 PM PDT Station ID: [id number]
== END 2022-12-13 13:44 | disposition home or self-care (01) ==
LOC: DI 13:43
PROVIDERS: ATTEND Physician Assistant
DX: E04.2 Nontoxic multinodular goiter (principal); I48.0 Paroxysmal atrial fibrillation; R49.0 Dysphonia
CPT/HCPCS: 36415; 80048; 84439; 84443; 84481; 85025

== ENCOUNTER 2022-12-22 11:40 | Outpatient (CLI) | payer MEDICARE, OTHER ==
[2022-12-23 19:07] LABS: THYROID PEROXIDASE (TPO) AB <9 IU/mL (0-34)
== END 2022-12-22 11:41 | disposition home or self-care (01) ==
LOC: LAB 11:40
PROVIDERS: ATTEND Physician Assistant
DX: E04.9 Nontoxic goiter, unspecified (principal); R49.0 Dysphonia
CPT/HCPCS: 36415; 86376; 86800

== ENCOUNTER 2023-01-12 09:42 | Outpatient (CLI) | payer MEDICARE, OTHER ==
[2023-01-12] MEDS ORDERED: LIDOCAINE-MPF 1% 5 ML VIAL ONE (09:59)
[2023-01-12] MEDS ORDERED: LIDOCAINE-MPF 1% 5 ML VIAL TD ONE (11:27)
--- NOTE | 2023-01-12 11:38 | Ultrasound Report ---
PROCEDURE: FNA Bx w/US Gdn 1st Les INDICATIONS: THYROID NODULE TECHNIQUE: The indications, alternatives, benefits, risks, and complications of the procedure were explained to the patient. Written informed consent was obtained and placed in the chart. The area of interest wa s examined sonographically and a site was chosen for ultrasound guided percutaneous sampling. The sk in was prepared and draped in the usual fashion, and anesthetized with 1% lidocaine infiltrated from the skin down to the lesion. Multiple passes were then performed, with contents emptied into an appr [facility] specimen container. A bandage was applied to the area of access at completion of t he study. COMPARISON: Thyroid ultrasound 02/12/2023 FINDINGS: Location(s) of lesion(s) sampled: Left thyroid lesion Harvel: 25 gauge hypodermic needles. Number of passes: 6 Medications: 1% lidocaine for local anaesthesia. Complications: None. IMPRESSION: Successful ultrasound-guided left thyroid fine needle aspiration, with cytology results pending. Reviewed by: Mallory Soliman MD on 01/12/2023 11:36 AM PDT Approved by: Mallory Soliman MD on 01/12/2023 11:36 AM PDT Station ID: [id number]
--- NOTE | 2023-01-12 11:38 | Ultrasound Report ---
PROCEDURE: FNA Bx w/US Gnd Ea Addl INDICATIONS: THYROID NODULE TECHNIQUE: The indications, alternatives, benefits, risks, and complications of the procedure were explained to the patient. Written informed consent was obtained and placed in the chart. The area of interest wa s examined sonographically and a site was chosen for ultrasound guided percutaneous sampling. The sk in was prepared and draped in the usual fashion, and anesthetized with 1% lidocaine infiltrated from the skin down to the lesion. Multiple passes were then performed, with contents emptied into an appr [facility] pathology specimen container. A bandage was applied to the area of access at completion of t he study. COMPARISON: Thyroid ultrasound 12/13/2022 FINDINGS: Location(s) of lesion(s) sampled: Right thyroid [place]: 25 gauge hypodermic needles. Number of passes: 6 Medications: 1% lidocaine for local anaesthesia. Complications: None. IMPRESSION: Successful ultrasound-guided right thyroid fine needle aspiration, with cytology results pending. Reviewed by: Mallory Soliman MD on 01/12/2023 11:36 AM PDT Approved by: Mallory Soliman MD on 01/12/2023 11:36 AM PDT Station ID: [id number]
== END 2023-01-12 09:43 | disposition home or self-care (01) ==
LOC: DI 09:42
PROVIDERS: ATTEND Physician Assistant
DX: E04.2 Nontoxic multinodular goiter (principal)
CPT/HCPCS: 10005; 10006

== ENCOUNTER 2023-02-08 09:40 | Outpatient (CLI) | payer MEDICARE, OTHER ==
[2023-02-08] MEDS ORDERED: LIDOCAINE-MPF 1% 5 ML VIAL ONE (09:42)
[2023-02-08] MEDS ORDERED: LIDOCAINE-MPF 1% 5 ML VIAL TD ONE (11:24)
--- NOTE | 2023-02-08 13:32 | Ultrasound Report ---
PROCEDURE: FNA Bx w/US Gdn 1st Les INDICATIONS: THYROID NODULE TECHNIQUE: The indications, alternatives, benefits, risks, and complications of the procedure were explained to the patient. Written informed consent was obtained and placed in the chart. The area of interest wa s examined sonographically and a site was chosen for ultrasound guided percutaneous sampling. The sk in was prepared and draped in the usual fashion, and anesthetized with 1% lidocaine infiltrated from the skin down to the lesion. Multiple passes were then performed, with contents emptied into an appr [facility] pathology specimen container. A bandage was applied to the area of access at completion of t he study. COMPARISON: Thyroid ultrasound 12/13/2022. Ultrasound-guided fine-needle aspiration dated 01/12/2023. FINDINGS: Location(s) of lesion(s) sampled: Superior left thyroid (nodule #3 on prior ultrasound dated 12/14/19 23). [place]: 25 gauge hypodermic needles. Number of passes: 6 Medications: 1% lidocaine for local anaesthesia. Complications: None. IMPRESSION: Successful ultrasound-guided left thyroid nodule fine needle aspiration, with cytology results dameon jeffries Reviewed by: Douglas Gaines MD on 02/08/2023 1:31 PM PDT Approved by: Douglas Gaines MD on 02/08/2023 1:31 PM PDT Station ID: [id number]
== END 2023-02-08 09:41 | disposition home or self-care (01) ==
LOC: DI 09:40
PROVIDERS: ATTEND Family Medicine
DX: E04.1 Nontoxic single thyroid nodule (principal)
CPT/HCPCS: 10005

== ENCOUNTER 2023-02-27 08:01 | Outpatient (CLI) | payer MEDICARE, OTHER ==
[2023-02-27 08:15] LABS: BASOPHILS % (AUTO) 0.7 %; EOSINOPHILS # (AUTO) 0.1 10^3/uL (0.0-0.7); EOSINOPHILS % (AUTO) 2.7 %; HCT - HEMATOCRIT 39.6 % (42.0-52.0); HGB - HEMOGLOBIN 13.5 g/dL (14.0-18.0); LYMPHOCYTES # (AUTO) 0.9 10^3/uL (1.5-3.5); LYMPHOCYTES % (AUTO) 21.2 %; MEAN CORPUSCULAR HEMOGLOBIN 30.9 pg (27.0-31.0); MEAN CORPUSCULAR HGB CONC 34.1 g/dL (32.0-36.0); MEAN CORPUSCULAR VOLUME 90.6 fL (80.0-94.0); MEAN PLATELET VOLUME 10.8 fL (7.4-11.4); MONOCYTES # (AUTO) 0.5 10^3/uL (0.0-1.0); MONOCYTES % (AUTO) 11.1 %; NEUTROPHILS # (AUTO) 2.6 10^3/uL (1.5-6.6); NEUTROPHILS % (AUTO) 64.3 %; PLT - PLATELET COUNT 198 10^3/uL (130-450); RED BLOOD COUNT 4.37 10^6/uL (4.70-6.10); RED CELL DISTRIBUTION WIDTH 12.7 % (12.0-15.0); WHITE BLOOD COUNT 4.1 x10^3/uL (4.8-10.8)
[2023-02-27 08:37] LABS: CREATININE,URINE 104.4 mg/dL; MICROALBUM/CREATININE RATIO,UR 11.5 ug/mg (<30.0); MICROALBUMIN,URINE 1.2 mg/dL (0-300.0)
[2023-02-27 08:38] LABS: ALBUMIN 3.6 g/dL (3.2-5.5); ALBUMIN/GLOBULIN RATIO 1.2 (1.0-2.2); ALKALINE PHOSPHATASE 64 IU/L (42-121); ALT ALANINE AMINOTRANSFERASE 41 IU/L (10-60); AST ASPARTATE AMINOTRANSFERASE 27 IU/L (10-42); BILIRUBIN,TOTAL 0.7 mg/dL (0.2-1.0); BUN - BLOOD UREA NITROGEN 12 mg/dL (6-20); CALCIUM 8.9 mg/dL (8.5-10.3); CARBON DIOXIDE - CO2 31 mmol/L (21-32); CHLORIDE 102 mmol/L (101-111); CHOL/HDL RATIO 2.6 (<5.0); CHOLESTEROL 111 mg/dL; CREATININE 1.3 mg/dL (0.6-1.2); GFR - MDRD 54 (>89); GLUCOSE 132 mg/dL (70-100); HDL CHOLESTEROL 42 mg/dL; LDL CHOLESTEROL,CALCULATED 53 mg/dL; LDL/HDL RATIO 1.3 (<3.6); SODIUM 140 mmol/L (135-145); TOTAL PROTEIN 6.6 g/dL (6.7-8.2); TRIGLYCERIDES 79 mg/dL; VLDL CHOLESTEROL 16 mg/dL
[2023-02-27 09:07] LABS: THYROID STIMULATING HORMONE < 0.08 uIU/mL (0.34-5.60)
[2023-02-27 09:38] LABS: FREE T4 (FREE THYROXINE) 1.55 ng/dL (0.58-1.64)
[2023-02-27 12:07] LABS: ESTIMATED AVERAGE GLUCOSE 134 mg/dL (70-100); HEMOGLOBIN A1c% 6.3 % (4.27-6.07)
== END 2023-02-27 08:02 | disposition home or self-care (01) ==
LOC: LAB 08:01
PROVIDERS: ATTEND Physician Assistant
DX: E11.9 Type 2 diabetes mellitus without complications (principal); E78.5 Hyperlipidemia, unspecified; Z12.5 Encounter for screening for malignant neoplasm of prostate; R94.6 Abnormal results of thyroid function studies
CPT/HCPCS: 36415; 80053; 80061; 82043; 82570; 83036; 84439; 84443; 84481; 85025; G0103; 83721; 84153